=== PATIENT | male | born 1945 | race Caucasian/White ===

== ENCOUNTER 2021-10-04 19:22 | Emergency (ER) | payer MEDICARE, OTHER, SELFPAY ==
[2021-10-04 19:40] VITALS: BP 152/88; PULSE 70; RESP 18; TEMP 36.3; O2SAT 97
--- NOTE | 2021-10-04 19:57 | ED.GENADULT ---
HPI - General Adult General Chief complaint: Extremity Injury, Lower Stated complaint: lt great toe discoloration History of Present Illness HPI narrative: Patient is a 75-year-old male presents to urgent care via POV accompanied by adult daughter for evaluation of a left toe problem that began 2 days ago. Additionally, he reports an ingrown toenail that became reddened and painful. No improvement after using Epson salt soaks and triple antibiotic ointment. Touching the area increases pain. Related Data Allergies Allergy/AdvReac Type Severity Reaction Status Date / Time ESOMEPRAZOLE MAG Allergy Mild Hives / Uncoded 10/04/21 19:51 Red Face RABEPRAZOLE SODIUM Allergy Mild Hives / Uncoded 10/04/21 19:51 Red Face Review of Systems Review of Systems: Denies injury. Pertinent negatives fever, chills, sweats, malaise, poor p.o. intake, change in appetite, headache, LOC, dizziness, streaking, decreased range of motion, drainage, numbness, tingling, loss of sensation, foreign body sensation, deformity, sob, chest pain, and heart palpitations/murmurs. PMFSH Comments I have reviewed and agree with the patient's past medical, surgical, social, and family hx as documented by the RN. There is no relevant family history pertinent to the presenting complaint. Exam Narrative: GENERAL: Well-appearing, well-nourished, and in no acute distress. HEAD: Normocephalic, atraumatic. No facial swelling appreciated. EYES: PERRLA and EOMI. No evidence of erythema, swelling, or drainage. ENT: Nares clear, no rhinorrhea or epistaxis.Mucous membranes moist and pink. Uvula is midline without erythema and swelling. No evidence of obstruction, petechial rash, cobblestoning, lesions, ulcers, erythema, swelling, exudates, peritonsillar abscess, tenting, or drooling. Breath odor and voice normal. NECK: Supple. No Lymphadenopathy or nuchal rigidity appreciated. CHEST: Bilateral lung palomino are clear to auscultation. No respiratory distress. No evidence of cough or pleuritic cp upon examination. HEART: Regular rate and rhythm. No murmur, gallop, or rub heard. EXTREMITIES: Normal range of motion. No edema. SKIN: Warm, dry. Mild to moderate cellulitis noted to left great toe. no evidence of abscess, streaking, induration, abrasions/lacerations, petechiae, hematoma, contusion, drainage, or bleeding. NEURO: No focal deficits. Alert and oriented x3. SPECIAL OBSERVATIONS: Smiling. Laughing. No evidence of discomfort. Course Course Level of Care: Express Care Visit Vital Signs Vital signs: Vital Signs Temperature 97.3 F L 10/04/21 19:40 Pulse Rate 70 10/04/21 19:40 Respiratory Rate 18 10/04/21 19:40 Blood Pressure 152/88 H 10/04/21 19:40 Pulse Oximetry 97 10/04/21 19:40 Oxygen Delivery Room Air 10/04/21 19:40 Temperature 97.3 F L 10/04/21 19:40 Pulse Rate 70 10/04/21 19:40 Respiratory Rate 18 10/04/21 19:40 Blood Pressure 152/88 H 10/04/21 19:40 Pulse Oximetry 97 10/04/21 19:40 Oxygen Delivery Room Air 10/04/21 19:40 Medical Decision Making Differential Diagnosis Differential Diagnosis: Contact/allergic dermatitis, atopic dermatitis, psoriasis, cellulitis, tinea infection, parasite infection, shingles Vital Signs Vital Signs: Vital Signs Temperature 97.3 F L 10/04/21 19:40 Pulse Rate 70 10/04/21 19:40 Respiratory Rate 18 10/04/21 19:40 Blood Pressure 152/88 H 10/04/21 19:40 Pulse Oximetry 97 10/04/21 19:40 Oxygen Delivery Room Air 10/04/21 19:40 Temperature 97.3 F L 10/04/21 19:40 Pulse Rate 70 10/04/21 19:40 Respiratory Rate 18 10/04/21 19:40 Blood Pressure 152/88 H 10/04/21 19:40 Pulse Oximetry 97 10/04/21 19:40 Oxygen Delivery Room Air 10/04/21 19:40 Due to an elevated blood pressure, I had a detailed discussion with the patient and/or guardian regarding the need for follow-up with their primary care provider within the next 3-4 days. Patient bassam
--- NOTE | 2021-10-05 10:20 | PC.NURSE ---
Keflex canceled, [facility] 10/05/21- 10:22
== END 2021-10-04 20:06 | disposition home or self-care (01) ==
PROVIDERS: Emergency Provider Nurse Practitioner Family
DX: L03.032 Cellulitis of left toe (principal); I10 Essential (primary) hypertension; E78.5 Hyperlipidemia, unspecified
CPT/HCPCS: 99213; G0463